=== PATIENT | female | born 1955 | race Caucasian/White ===

== ENCOUNTER → 2018-06-24 | Outpatient (CLI) | payer MEDICARE, BC ==
[~2018-06-24] MED LIST: ALBU2.5V NEB; ALBU8.5H8 INH; EPIN0.3P3 SC; ESOM40CA PO; FEXO180T72 PO; FLOVENT INH; FLUT16SP NAS; GUAI1TBM11 PO; HYDROXINE PO; IFLORA PO; PSEU30TA8 PO; [UNRECOGNIZED DRUG - OTHER] PO
== END | disposition home or self-care (01) ==
LOC: WOUND 07:54
PROVIDERS: ATTEND Nurse Practitioner Family
DX: Z43.3 Encounter for attention to colostomy (principal); M19.90 Unspecified osteoarthritis, unspecified site; J45.909 Unspecified asthma, uncomplicated; K21.9 Gastro-esophageal reflux disease without esophagitis; Z85.048 Personal history of other malignant neoplasm of rectum, rectosigmoid junction, and anus; Z87.891 Personal history of nicotine dependence
CPT/HCPCS: G0463; WOU0463

== ENCOUNTER 2018-06-25 05:57 | Inpatient (IN) | payer MEDICARE, BC ==
[2018-06-24 10:53] LABS: ALANINE AMINOTRANSFERASE 25 U/L (12-78); ALBUMIN 3.6 g/dL (3.4-5.0); ANION GAP 6 mmol/L (5-15); CALCIUM 8.8 mg/dL (8.5-10.1); CHLORIDE 107 mmol/L (98-107); CREATININE 0.93 mg/dL (0.55-1.02)
[2018-06-24 10:57] LABS: ALKALINE PHOSPHATASE 127 U/L (45-117); BILIRUBIN,TOTAL 1.1 mg/dL (0.2-1.0); TOTAL PROTEIN 7.3 g/dL (6.4-8.2)
[2018-06-24 11:00] LABS: BASOPHILS # (AUTO) 0.01 x10^3/uL (0-0.1); BASOPHILS % (AUTO) 0 % (0-1); EOSINOPHILS % (AUTO) 0 % (1-7); LYMPHOCYTES # (AUTO) 1.15 x10^3/uL (1-3.4); LYMPHOCYTES % (AUTO) 24 % (22-44); MD NO; MEAN CORPUSCULAR HEMOGLOBIN 31.9 pg (27.0-34.8); MEAN CORPUSCULAR HGB CONC 34.4 g/dL (32.4-35.8); MEAN CORPUSCULAR VOLUME 92.6 fL (80-100); MEAN PLATELET VOLUME 7.8 fL (7.4-10.4); MONOCYTES # (AUTO) 0.64 x10^3/uL (0.2-0.8); MONOCYTES % (AUTO) 14 % (2-9); NEUTROPHILS # (AUTO) 2.92 x10^3/uL (1.8-6.8); NEUTROPHILS % (AUTO) 62 % (42-75); PLATELET COUNT 234 x10^3/uL (130-400); RED BLOOD COUNT 4.58 x10^6/uL (3.82-5.3); RED CELL DISTRIBUTION WIDTH 12.6 % (9.6-15.2)
[~2018-06-25] VITALS: Ht 157.5 cm; Wt 79.6 kg
[2018-06-25] MEDS ORDERED: LACTATED RINGERS 1,000 ML IV SCH (06:41)
[2018-06-25] MEDS ORDERED: LIDOCAINE-MPF 1%, 2ML ONE (06:43)
[2018-06-25] MEDS ORDERED: LIDOCAINE-MPF 1%, 2ML INFIL ONE (07:00)
[2018-06-25] MEDS ORDERED: FENTANYL PF 250 MCG/5ML ONE ×2 (07:09→09:08)
[2018-06-25] MEDS ORDERED: MIDAZOLAM 1 MG/ML, 5ML ONE (07:09)
[2018-06-25] MEDS ORDERED: LIDOCAINE GEL 2%, 5ML ONE (07:09)
[2018-06-25] MEDS ORDERED: BUPIVACAINE/PF 0.25% ONE ×2 (07:13)
[2018-06-25] MEDS ORDERED: BUPIVACAINE/PF 0.5% ONE (07:13)
[2018-06-25] MEDS ORDERED: INDOCYANINE GREEN 25 MG VIAL ONE (07:13)
[2018-06-25] MEDS ORDERED: PHENYLEPHRINE 10 MG/ML ONE (07:17)
[2018-06-25] MEDS ORDERED: methylPREDNISolone SOD SUCC 125 MG/2 ML ONE (07:20)
[2018-06-25] MEDS ORDERED: HEPARIN 1,000 UNITS/ML, 10ML ONE (07:22)
[2018-06-25] MEDS ORDERED: ROCURONIUM 10 MG/ML,10ML ONE (07:34)
[2018-06-25] MEDS ORDERED: ONDANSETRON 2MG/ML, 2ML ONE ×3 (07:34→10:58)
[2018-06-25] MEDS ORDERED: CEFAZOLIN 1,000 MG ONE (07:34)
[2018-06-25] MEDS ORDERED: DEXAMETHASONE 4 MG/ML, 1ML ONE (07:34)
[2018-06-25] MEDS ORDERED: NEOSTIGMINE 1 MG/ML, 10ML ONE ×2 (07:34→10:59)
[2018-06-25] MEDS ORDERED: GLYCOPYRROLATE 0.2MG/1ML, 5ML ONE (07:34)
[2018-06-25] MEDS ORDERED: EPHEDRINE 50 MG/ML, 1ML ONE (08:08)
[2018-06-25] MEDS ORDERED: METRONIDAZOLE PMX 500MG/100ML 100 ML ONE (08:24)
[2018-06-25] MEDS ORDERED: PROMETHAZINE 25 MG/ML, 1ML IV PRN (09:00)
[2018-06-25] MEDS ORDERED: MEPERIDINE/PF 25MG/0.5ML IVPush PRN (09:00)
[2018-06-25] MEDS ORDERED: LABETALOL 5MG/ML, 20ML IV PRN (09:00)
[2018-06-25] MEDS ORDERED: HYDROmorphone 1 MG/ML, 1ML IV PRN (09:00)
[2018-06-25] MEDS ORDERED: ONDANSETRON 2MG/ML, 2ML IV PRN (09:00)
[2018-06-25] MEDS ORDERED: ALBUTEROL SULFATE 2.5 MG/3 ML NPPB PRN ×2 (09:00→16:00)
[2018-06-25] MEDS ORDERED: ONDANSETRON ODT 8 MG PO PRN (09:00)
[2018-06-25] MEDS ORDERED: OXYcodone 5 MG/5 ML ORAL.SOL UDC PO PRN (09:00)
[2018-06-25] MEDS ORDERED: PROMETHAZINE 12.5 MG SUPP PR PRN (09:00)
[2018-06-25] MEDS ORDERED: hydrALAzine 20 MG/ML, 1ML IV PRN (09:00)
[2018-06-25] MEDS ORDERED: ACETAMINOPHEN 325 MG TABLET PO PRN (09:00)
[2018-06-25] MEDS ORDERED: MIDAZOLAM 1 MG/ML, 2ML IV PRN (09:00)
[2018-06-25] MEDS ORDERED: GLYCOPYRROLATE 0.4 MG/2 ML, 2ML ONE (10:59)
[2018-06-25] MEDS ORDERED: ACETAMINOPHEN 650 MG/20.3 ML UDC ONE (12:09)
[2018-06-25] MEDS ORDERED: FENTANYL PF 100 MCG/2ML ONE (12:09)
[2018-06-25] MEDS ORDERED: OXYcodone 5 MG/5 ML ORAL.SOL UDC ONE (12:09)
[2018-06-25] MEDS: FENTANYL PF 100 MCG/2ML IV PRN ×2 (12:29→12:54)
[2018-06-25] MEDS ORDERED: ALBUTEROL SULFATE 2.5 MG/3 ML HHN PRN (13:30)
[2018-06-25] MEDS ORDERED: LORazepam 1MG TABLET PO PRN (14:00)
[2018-06-25] MEDS ORDERED: DIPHENHYDRAMINE 25 MG CAPSULE PO PRN (14:00)
[2018-06-25] MEDS ORDERED: LORazepam 2 MG/ML, 1ML IVPush PRN (14:00)
[2018-06-25] MEDS ORDERED: HALOPERIDOL 5 MG/ML IVPush PRN (14:00)
[2018-06-25] MEDS ORDERED: DEXAMETHASONE 4 MG/ML, 1ML IVPush PRN (14:00)
[2018-06-25] MEDS: D5%-0.45NACL+KCL 20MEQ 1,000 ML IV SCH (14:34)
[2018-06-25] MEDS: ACETAMINOPHEN 500 MG TABLET PO SCH ×2 (14:43→20:44)
[2018-06-25] MEDS: OXYcodone IR 5MG TABLET PO PRN ×3 (14:43→22:46)
[2018-06-25 15:00] VITALS: BP 122/60
[2018-06-25] MEDS ORDERED: HYDROmorphone 2 MG/ML, 1ML ONE (16:15)
[2018-06-25] MEDS: IBUPROFEN 800 MG TABLET PO SCH ×2 (16:23→20:44)
[2018-06-25] MEDS: HYDROmorphone 1 MG/ML, 1ML IVPush PRN (16:23)
[2018-06-25 19:00] VITALS: BP 113/75
[2018-06-25] MEDS: ALBUTEROL SULFATE 2.5 MG/3 ML NPPB SCH ×2 (20:07→20:08)
[2018-06-25] MEDS: GUAIFENESIN ER 600 MG TABLET PO SCH (20:44)
[2018-06-25] MEDS: CALCIUM CARBONATE 500 MG TAB.CHEW PO PRN (22:45)
[2018-06-26 01:45] VITALS: BP 116/69
[2018-06-26] MEDS: ACETAMINOPHEN 500 MG TABLET PO SCH ×4 (02:35→20:19)
[2018-06-26] MEDS: CALCIUM CARBONATE 500 MG TAB.CHEW PO PRN (02:35)
[2018-06-26 05:09] LABS: BASOPHILS # (AUTO) 0.02 x10^3/uL (0-0.1); BASOPHILS % (AUTO) 0 % (0-1); EOSINOPHILS % (AUTO) 0 % (1-7); LYMPHOCYTES # (AUTO) 0.95 x10^3/uL (1-3.4); LYMPHOCYTES % (AUTO) 10 % (22-44); MD NO; MEAN CORPUSCULAR HEMOGLOBIN 31.7 pg (27.0-34.8); MEAN CORPUSCULAR VOLUME 93.2 fL (80-100); MEAN PLATELET VOLUME 7.8 fL (7.4-10.4); MONOCYTES # (AUTO) 1.07 x10^3/uL (0.2-0.8); MONOCYTES % (AUTO) 11 % (2-9); NEUTROPHILS # (AUTO) 7.44 x10^3/uL (1.8-6.8); NEUTROPHILS % (AUTO) 79 % (42-75); PLATELET COUNT 217 x10^3/uL (130-400); RED BLOOD COUNT 3.82 x10^6/uL (3.82-5.3); RED CELL DISTRIBUTION WIDTH 12.8 % (9.6-15.2)
[2018-06-26] MEDS: D5%-0.45NACL+KCL 20MEQ 1,000 ML IV SCH ×2 (05:11→18:36)
[2018-06-26 05:21] LABS: ANION GAP 4 mmol/L (5-15); CALCIUM 8.3 mg/dL (8.5-10.1); CHLORIDE 109 mmol/L (98-107); CREATININE 0.76 mg/dL (0.55-1.02)
[2018-06-26 05:26] VITALS: BP 108/69
[2018-06-26 07:43] VITALS: BP 122/70
[2018-06-26] MEDS: PANTOPROZOLE 40MG TABLET PO SCH (07:55)
[2018-06-26] MEDS: ALBUTEROL SULFATE 2.5 MG/3 ML NPPB SCH ×3 (09:00→19:42)
[2018-06-26] MEDS: GUAIFENESIN ER 600 MG TABLET PO SCH ×2 (09:07→20:19)
[2018-06-26] MEDS: LORATADINE 10 MG TABLET PO SCH (09:07)
[2018-06-26] MEDS: ENOXAPARIN 40 MG/0.4 ML SQ SCH (09:52)
[2018-06-26] MEDS: IBUPROFEN 800 MG TABLET PO SCH ×3 (09:52→20:19)
[2018-06-26 12:33] VITALS: BP 114/71
[2018-06-26] MEDS: FLUTICASONE NASAL SPRAY 16GM NAS SCH (13:04)
[2018-06-26] MEDS: OXYcodone IR 5MG TABLET PO PRN (17:54)
[2018-06-26 18:43] VITALS: BP 135/75
[2018-06-27 01:51] VITALS: BP 126/62
[2018-06-27] MEDS: ACETAMINOPHEN 500 MG TABLET PO SCH ×5 (02:22→20:50)
[2018-06-27 05:31] LABS: BASOPHILS # (AUTO) 0.01 x10^3/uL (0-0.1); BASOPHILS % (AUTO) 0 % (0-1); EOSINOPHILS % (AUTO) 0 % (1-7); LYMPHOCYTES % (AUTO) 22 % (22-44); MD NO; MEAN CORPUSCULAR HEMOGLOBIN 30.9 pg (27.0-34.8); MEAN CORPUSCULAR HGB CONC 33.4 g/dL (32.4-35.8); MEAN CORPUSCULAR VOLUME 92.5 fL (80-100); MEAN PLATELET VOLUME 7.8 fL (7.4-10.4); MONOCYTES # (AUTO) 0.62 x10^3/uL (0.2-0.8); MONOCYTES % (AUTO) 11 % (2-9); NEUTROPHILS # (AUTO) 3.77 x10^3/uL (1.8-6.8); NEUTROPHILS % (AUTO) 67 % (42-75); PLATELET COUNT 195 x10^3/uL (130-400); RED BLOOD COUNT 3.85 x10^6/uL (3.82-5.3); RED CELL DISTRIBUTION WIDTH 12.5 % (9.6-15.2)
[2018-06-27 05:40] LABS: ANION GAP 6 mmol/L (5-15); CALCIUM 8.3 mg/dL (8.5-10.1); CHLORIDE 109 mmol/L (98-107)
[2018-06-27] MEDS: OXYcodone IR 5MG TABLET PO PRN ×2 (05:52→09:24)
[2018-06-27] MEDS: PANTOPROZOLE 40MG TABLET PO SCH (07:28)
[2018-06-27 08:50] VITALS: BP 145/74
[2018-06-27] MEDS: D5%-0.45NACL+KCL 20MEQ 1,000 ML IV SCH ×2 (08:54→20:54)
[2018-06-27] MEDS: ALBUTEROL SULFATE 2.5 MG/3 ML NPPB SCH (09:00)
[2018-06-27] MEDS: ENOXAPARIN 40 MG/0.4 ML SQ SCH (09:23)
[2018-06-27] MEDS: IBUPROFEN 800 MG TABLET PO SCH ×3 (09:24→20:46)
[2018-06-27] MEDS: GUAIFENESIN ER 600 MG TABLET PO SCH ×2 (09:24→20:50)
[2018-06-27] MEDS: LORATADINE 10 MG TABLET PO SCH (09:24)
[2018-06-27] MEDS: ONDANSETRON 2MG/ML, 2ML IV PRN ×2 (11:18→20:50)
[2018-06-27 14:30] VITALS: BP 154/92
[2018-06-27] MEDS: FLUTICASONE NASAL SPRAY 16GM NAS SCH (15:00)
[2018-06-27] MEDS: CALCIUM CARBONATE 500 MG TAB.CHEW PO PRN (16:54)
[2018-06-27] MEDS: DIPHENHYDRAMINE 50 MG/ML, 1ML IVPush PRN ×2 (17:10→23:33)
[2018-06-27 19:06] VITALS: BP 151/84
[2018-06-28 00:45] VITALS: BP 151/75
[2018-06-28] MEDS: SCOPOLAMINE PATCH, 1.5MG PATCH.TD72 TD PRN (03:31)
[2018-06-28 05:25] LABS: ANION GAP 10 mmol/L (5-15); CALCIUM 9.5 mg/dL (8.5-10.1); CHLORIDE 100 mmol/L (98-107); CREATININE 0.85 mg/dL (0.55-1.02)
[2018-06-28 05:26] LABS: BASOPHILS # (AUTO) 0.01 x10^3/uL (0-0.1); BASOPHILS % (AUTO) 0 % (0-1); EOSINOPHILS % (AUTO) 0 % (1-7); LYMPHOCYTES # (AUTO) 0.89 x10^3/uL (1-3.4); LYMPHOCYTES % (AUTO) 10 % (22-44); MD NO; MEAN CORPUSCULAR HEMOGLOBIN 31.5 pg (27.0-34.8); MEAN CORPUSCULAR HGB CONC 33.7 g/dL (32.4-35.8); MEAN CORPUSCULAR VOLUME 93.4 fL (80-100); MEAN PLATELET VOLUME 8.1 fL (7.4-10.4); MONOCYTES # (AUTO) 0.48 x10^3/uL (0.2-0.8); MONOCYTES % (AUTO) 5 % (2-9); NEUTROPHILS # (AUTO) 8.03 x10^3/uL (1.8-6.8); NEUTROPHILS % (AUTO) 85 % (42-75); PLATELET COUNT 316 x10^3/uL (130-400); RED BLOOD COUNT 5.08 x10^6/uL (3.82-5.3); RED CELL DISTRIBUTION WIDTH 12.6 % (9.6-15.2)
[2018-06-28] MEDS: PANTOPROZOLE 40MG TABLET PO SCH ×2 (07:53→19:39)
[2018-06-28] MEDS: ACETAMINOPHEN 500 MG TABLET PO SCH ×3 (07:53→19:39)
[2018-06-28 08:21] VITALS: BP 160/85
[2018-06-28] MEDS: IBUPROFEN 800 MG TABLET PO SCH ×3 (09:00→19:39)
[2018-06-28] MEDS: FLUTICASONE NASAL SPRAY 16GM NAS SCH (09:00)
[2018-06-28] MEDS: GUAIFENESIN ER 600 MG TABLET PO SCH ×2 (09:51→19:39)
[2018-06-28] MEDS: ENOXAPARIN 40 MG/0.4 ML SQ SCH (09:51)
[2018-06-28] MEDS: LORATADINE 10 MG TABLET PO SCH (09:51)
[2018-06-28] MEDS ORDERED: CALCIUM CARBONATE 500 MG TAB.CHEW PO PRN (10:00)
[2018-06-28] MEDS: ONDANSETRON 2MG/ML, 2ML IV PRN (11:44)
[2018-06-28 14:30] VITALS: BP 146/87
[2018-06-28 19:42] VITALS: BP 151/84
[2018-06-28] MEDS: D5%-0.45NACL+KCL 20MEQ 1,000 ML IV SCH (19:43)
[2018-06-29] MEDS: ACETAMINOPHEN 500 MG TABLET PO SCH ×4 (01:06→19:23)
[2018-06-29 01:52] VITALS: BP 153/83
[2018-06-29 05:15] LABS: BASOPHILS # (AUTO) 0.02 x10^3/uL (0-0.1); BASOPHILS % (AUTO) 0 % (0-1); EOSINOPHILS % (AUTO) 0 % (1-7); LYMPHOCYTES # (AUTO) 1.43 x10^3/uL (1-3.4); LYMPHOCYTES % (AUTO) 18 % (22-44); MD NO; MEAN CORPUSCULAR HEMOGLOBIN 31.6 pg (27.0-34.8); MEAN CORPUSCULAR HGB CONC 34.3 g/dL (32.4-35.8); MEAN CORPUSCULAR VOLUME 91.9 fL (80-100); MEAN PLATELET VOLUME 7.9 fL (7.4-10.4); MONOCYTES # (AUTO) 0.99 x10^3/uL (0.2-0.8); MONOCYTES % (AUTO) 12 % (2-9); NEUTROPHILS # (AUTO) 5.71 x10^3/uL (1.8-6.8); NEUTROPHILS % (AUTO) 70 % (42-75); PLATELET COUNT 315 x10^3/uL (130-400); RED BLOOD COUNT 4.67 x10^6/uL (3.82-5.3); RED CELL DISTRIBUTION WIDTH 12.8 % (9.6-15.2)
[2018-06-29 05:25] LABS: CHLORIDE 99 mmol/L (98-107)
[2018-06-29 05:57] LABS: ANION GAP 7 mmol/L (5-15); CALCIUM 8.9 mg/dL (8.5-10.1); CREATININE 0.91 mg/dL (0.55-1.02)
[2018-06-29] MEDS: D5%-0.45NACL+KCL 20MEQ 1,000 ML IV SCH ×2 (06:19→16:16)
[2018-06-29 07:30] VITALS: BP 146/70
[2018-06-29] MEDS: ENOXAPARIN 40 MG/0.4 ML SQ SCH (08:51)
[2018-06-29] MEDS: FLUTICASONE NASAL SPRAY 16GM NAS SCH (08:52)
[2018-06-29] MEDS: IBUPROFEN 800 MG TABLET PO SCH ×3 (08:52→19:23)
[2018-06-29] MEDS: PANTOPROZOLE 40MG TABLET PO SCH ×2 (08:52→20:11)
[2018-06-29] MEDS: GUAIFENESIN ER 600 MG TABLET PO SCH ×2 (08:53→20:10)
[2018-06-29] MEDS: LORATADINE 10 MG TABLET PO SCH (08:53)
[2018-06-29 12:19] VITALS: BP 152/85
[2018-06-29 19:13] VITALS: BP 149/76
[2018-06-30] MEDS: D5%-0.45NACL+KCL 20MEQ 1,000 ML IV SCH ×3 (01:42→21:29)
[2018-06-30] MEDS: ACETAMINOPHEN 500 MG TABLET PO SCH ×2 (01:43→08:45)
[2018-06-30 01:44] VITALS: BP 160/92
[2018-06-30 01:49] VITALS: BP 148/87
[2018-06-30 07:15] VITALS: BP 156/83
[2018-06-30] MEDS: IBUPROFEN 800 MG TABLET PO SCH (08:46)
[2018-06-30] MEDS: PANTOPROZOLE 40MG TABLET PO SCH (08:47)
[2018-06-30] MEDS: LORATADINE 10 MG TABLET PO SCH (08:47)
[2018-06-30] MEDS: ENOXAPARIN 40 MG/0.4 ML SQ SCH (08:47)
[2018-06-30] MEDS: FLUTICASONE NASAL SPRAY 16GM NAS SCH (08:48)
[2018-06-30] MEDS: GUAIFENESIN ER 600 MG TABLET PO SCH (08:48)
[2018-06-30] MEDS: NEXIUM HOMEMEDPO SCH ×2 (08:50→21:00)
[2018-06-30] MEDS: FEXOFENADINE HOMEMEDPO SCH (08:50)
[2018-06-30 12:18] VITALS: BP 160/85
[2018-06-30 20:24] VITALS: BP_SYST 85
[2018-06-30 21:13] VITALS: BP 155/85
[2018-07-01 02:12] VITALS: BP 156/81
[2018-07-01 06:54] VITALS: BP 147/80
[2018-07-01] MEDS: METOCLOPRAMIDE 5 MG/ML, 2ML IVPush SCH ×3 (07:27→19:26)
[2018-07-01] MEDS: D5%-0.45NACL+KCL 20MEQ 1,000 ML IV SCH ×2 (07:45→17:25)
[2018-07-01] MEDS: FLUTICASONE NASAL SPRAY 16GM NAS SCH (09:00)
[2018-07-01] MEDS: NEXIUM HOMEMEDPO SCH ×2 (09:00→20:43)
[2018-07-01] MEDS: FEXOFENADINE HOMEMEDPO SCH (09:00)
[2018-07-01] MEDS: ENOXAPARIN 40 MG/0.4 ML SQ SCH (09:23)
[2018-07-01] MEDS: SCOPOLAMINE PATCH, 1.5MG PATCH.TD72 TD PRN (11:50)
[2018-07-01 12:28] VITALS: BP 166/80
[2018-07-01 19:47] VITALS: BP 137/75
[2018-07-02] MEDS: METOCLOPRAMIDE 5 MG/ML, 2ML IVPush SCH ×4 (00:58→21:29)
[2018-07-02 01:05] VITALS: BP 148/82
[2018-07-02] MEDS: D5%-0.45NACL+KCL 20MEQ 1,000 ML IV SCH ×2 (03:53→14:00)
[2018-07-02 06:51] VITALS: BP 149/80
[2018-07-02 07:23] LABS: BASOPHILS # (AUTO) 0.02 x10^3/uL (0-0.1); BASOPHILS % (AUTO) 0 % (0-1); EOSINOPHILS % (AUTO) 0 % (1-7); LYMPHOCYTES # (AUTO) 1.05 x10^3/uL (1-3.4); LYMPHOCYTES % (AUTO) 13 % (22-44); MD NO; MEAN CORPUSCULAR HEMOGLOBIN 31.2 pg (27.0-34.8); MEAN CORPUSCULAR HGB CONC 34.4 g/dL (32.4-35.8); MEAN CORPUSCULAR VOLUME 90.7 fL (80-100); MEAN PLATELET VOLUME 7.5 fL (7.4-10.4); MONOCYTES # (AUTO) 0.84 x10^3/uL (0.2-0.8); MONOCYTES % (AUTO) 11 % (2-9); NEUTROPHILS % (AUTO) 76 % (42-75); PLATELET COUNT 278 x10^3/uL (130-400); RED BLOOD COUNT 4.52 x10^6/uL (3.82-5.3); RED CELL DISTRIBUTION WIDTH 12.4 % (9.6-15.2)
[2018-07-02] MEDS: NEXIUM HOMEMEDPO SCH ×2 (07:48→20:49)
[2018-07-02] MEDS: FEXOFENADINE HOMEMEDPO SCH (07:48)
[2018-07-02] MEDS: FLUTICASONE NASAL SPRAY 16GM NAS SCH (07:49)
[2018-07-02 08:02] LABS: ANION GAP 8 mmol/L (5-15); CALCIUM 8.8 mg/dL (8.5-10.1); CHLORIDE 101 mmol/L (98-107)
[2018-07-02 08:03] LABS: CREATININE 0.83 mg/dL (0.55-1.02)
[2018-07-02] MEDS: ENOXAPARIN 40 MG/0.4 ML SQ SCH (10:13)
[2018-07-02 12:29] VITALS: BP 156/83
[2018-07-02] MEDS ORDERED: OMNIPAQUE 350 MG/ML, 150 ML BOTTLE ONE (17:45)
[2018-07-02 20:26] VITALS: BP 125/79
[2018-07-03 01:45] VITALS: BP 139/81
[2018-07-03] MEDS: D5%-0.45NACL+KCL 20MEQ 1,000 ML IV SCH ×3 (02:07→21:58)
[2018-07-03] MEDS ORDERED: OXYC-302 PO (02:12)
[2018-07-03] MEDS ORDERED: ENOX40SY4 SQ (02:13)
[2018-07-03] MEDS: METOCLOPRAMIDE 5 MG/ML, 2ML IVPush SCH ×4 (03:25→21:11)
[2018-07-03 08:20] VITALS: BP 130/80
[2018-07-03] MEDS: FEXOFENADINE HOMEMEDPO SCH (09:00)
[2018-07-03] MEDS: NEXIUM HOMEMEDPO SCH ×2 (09:00→21:00)
[2018-07-03] MEDS: FLUTICASONE NASAL SPRAY 16GM NAS SCH (09:00)
[2018-07-03] MEDS: ENOXAPARIN 40 MG/0.4 ML SQ SCH (09:44)
[2018-07-03 13:55] VITALS: BP 119/83
[2018-07-03 20:00] VITALS: BP 120/81
[2018-07-04 02:00] VITALS: BP 117/71
[2018-07-04] MEDS: METOCLOPRAMIDE 5 MG/ML, 2ML IVPush SCH ×4 (03:11→21:23)
[2018-07-04 03:23] LABS: BASOPHILS # (AUTO) 0.03 x10^3/uL (0-0.1); BASOPHILS % (AUTO) 0 % (0-1); EOSINOPHILS % (AUTO) 0 % (1-7); LYMPHOCYTES # (AUTO) 1.02 x10^3/uL (1-3.4); LYMPHOCYTES % (AUTO) 16 % (22-44); MD NO; MEAN CORPUSCULAR HEMOGLOBIN 31.5 pg (27.0-34.8); MEAN CORPUSCULAR HGB CONC 34.3 g/dL (32.4-35.8); MEAN CORPUSCULAR VOLUME 91.9 fL (80-100); MEAN PLATELET VOLUME 7.8 fL (7.4-10.4); MONOCYTES # (AUTO) 0.95 x10^3/uL (0.2-0.8); MONOCYTES % (AUTO) 15 % (2-9); NEUTROPHILS # (AUTO) 4.37 x10^3/uL (1.8-6.8); NEUTROPHILS % (AUTO) 69 % (42-75); PLATELET COUNT 297 x10^3/uL (130-400); RED BLOOD COUNT 4.69 x10^6/uL (3.82-5.3); RED CELL DISTRIBUTION WIDTH 12.4 % (9.6-15.2)
[2018-07-04 03:24] LABS: ANION GAP 6 mmol/L (5-15); CALCIUM 8.7 mg/dL (8.5-10.1); CHLORIDE 102 mmol/L (98-107); CREATININE 1.04 mg/dL (0.55-1.02)
[2018-07-04 07:29] VITALS: BP 127/84
[2018-07-04] MEDS: D5%-0.45NACL+KCL 20MEQ 1,000 ML IV SCH ×2 (08:32→18:06)
[2018-07-04] MEDS: ENOXAPARIN 40 MG/0.4 ML SQ SCH (08:33)
[2018-07-04] MEDS: FLUTICASONE NASAL SPRAY 16GM NAS SCH (08:33)
[2018-07-04] MEDS: NEXIUM HOMEMEDPO SCH ×2 (08:33→21:22)
[2018-07-04] MEDS: FEXOFENADINE HOMEMEDPO SCH (08:33)
[2018-07-04 13:23] VITALS: BP 165/78
[2018-07-04] MEDS ORDERED: BUPIVACAINE/PF 0.5% ONE (14:05)
[2018-07-04] MEDS ORDERED: FENTANYL PF 250 MCG/5ML ONE (14:25)
[2018-07-04] MEDS ORDERED: MIDAZOLAM 1 MG/ML, 2ML ONE (14:25)
[2018-07-04] MEDS ORDERED: NEOSTIGMINE 1 MG/ML, 10ML ONE (14:27)
[2018-07-04] MEDS ORDERED: GLYCOPYRROLATE 0.2MG/1ML, 5ML ONE (14:27)
[2018-07-04] MEDS ORDERED: ROCURONIUM 10MG/ML,5ML ONE (14:27)
[2018-07-04] MEDS ORDERED: DEXAMETHASONE 4 MG/ML, 1ML ONE (14:27)
[2018-07-04] MEDS ORDERED: CEFAZOLIN 1,000 MG ONE (14:27)
[2018-07-04] MEDS ORDERED: ONDANSETRON 2MG/ML, 2ML ONE (14:27)
[2018-07-04] MEDS ORDERED: PROPOFOL 10 MG/ML, 20ML ONE (14:27)
[2018-07-04] MEDS ORDERED: SUCCINYLCHOLINE 20 MG/ML, 10ML ONE (14:27)
[2018-07-04] MEDS ORDERED: NALOXONE 0.4 MG/ML, 1ML ONE (15:36)
[2018-07-04] MEDS ORDERED: PROMETHAZINE 25 MG/ML, 1ML IV PRN (16:00)
[2018-07-04] MEDS ORDERED: ONDANSETRON 2MG/ML, 2ML IV PRN (16:00)
[2018-07-04] MEDS ORDERED: ACETAMINOPHEN 325 MG TABLET PO PRN (16:00)
[2018-07-04] MEDS ORDERED: MORPHINE SULFATE 4 MG/ML, 1ML IVPush PRN (16:00)
[2018-07-04] MEDS ORDERED: OXYcodone 5 MG/5 ML ORAL.SOL UDC ONE ×2 (16:11→16:37)
[2018-07-04] MEDS ORDERED: FENTANYL PF 100 MCG/2ML ONE (16:11)
[2018-07-04] MEDS: FENTANYL PF 100 MCG/2ML IV PRN ×3 (16:14→16:39)
[2018-07-04] MEDS: OXYcodone 5 MG/5 ML ORAL.SOL UDC PO PRN ×2 (16:14→16:38)
[2018-07-04] MEDS ORDERED: HYDROmorphone 2 MG/ML, 1ML ONE ×2 (18:08→21:18)
[2018-07-04] MEDS: HYDROmorphone 1 MG/ML, 1ML IVPush PRN ×2 (18:11→21:23)
[2018-07-04 18:30] VITALS: BP 139/79
[2018-07-04] MEDS: OXYcodone IR 5MG TABLET PO PRN (21:50)
[2018-07-05 00:01] VITALS: BP 124/72
[2018-07-05] MEDS: OXYcodone IR 5MG TABLET PO PRN ×4 (00:40→19:46)
[2018-07-05 03:48] VITALS: BP 122/82
[2018-07-05] MEDS: METOCLOPRAMIDE 5 MG/ML, 2ML IVPush SCH ×4 (03:54→22:30)
[2018-07-05] MEDS: D5%-0.45NACL+KCL 20MEQ 1,000 ML IV SCH ×2 (03:54→13:27)
[2018-07-05 07:06] VITALS: BP 113/74
[2018-07-05] MEDS: FLUTICASONE NASAL SPRAY 16GM NAS SCH (08:20)
[2018-07-05] MEDS: FEXOFENADINE HOMEMEDPO SCH (08:20)
[2018-07-05] MEDS: NEXIUM HOMEMEDPO SCH ×2 (08:21→19:46)
[2018-07-05] MEDS: ENOXAPARIN 40 MG/0.4 ML SQ SCH (08:44)
[2018-07-05 15:03] VITALS: BP 116/79
[2018-07-05 19:17] VITALS: BP 105/70
[2018-07-06 00:20] VITALS: BP 100/68
[2018-07-06] MEDS: METOCLOPRAMIDE 5 MG/ML, 2ML IVPush SCH (04:26)
[2018-07-06] MEDS: OXYcodone IR 5MG TABLET PO PRN ×4 (04:33→21:04)
[2018-07-06 05:37] LABS: MEAN CORPUSCULAR HEMOGLOBIN 31.3 pg (27.0-34.8); MEAN CORPUSCULAR VOLUME 92.3 fL (80-100); MEAN PLATELET VOLUME 7.9 fL (7.4-10.4); PLATELET COUNT 301 x10^3/uL (130-400); RED BLOOD COUNT 5.09 x10^6/uL (3.82-5.3); RED CELL DISTRIBUTION WIDTH 12.7 % (9.6-15.2)
[2018-07-06 05:47] LABS: CHLORIDE 92 mmol/L (98-107)
[2018-07-06 05:55] LABS: ANION GAP 10 mmol/L (5-15); CALCIUM 9.5 mg/dL (8.5-10.1); CREATININE 1.46 mg/dL (0.55-1.02)
[2018-07-06 06:12] LABS: BASOPHILS % (AUTO) 0 % (0-1); EOSINOPHILS % (AUTO) 0 % (1-7); LYMPHOCYTES # (AUTO) 1.23 x10^3/uL (1-3.4); LYMPHOCYTES % (AUTO) 8 % (22-44); MD SCAN; MONOCYTES # (AUTO) 1.96 x10^3/uL (0.2-0.8); MONOCYTES % (AUTO) 12 % (2-9); NEUTROPHILS % (AUTO) 80 % (42-75)
[2018-07-06 07:05] VITALS: BP 122/73
[2018-07-06] MEDS: FEXOFENADINE HOMEMEDPO SCH (08:30)
[2018-07-06] MEDS: ENOXAPARIN 40 MG/0.4 ML SQ SCH (08:30)
[2018-07-06] MEDS: NEXIUM HOMEMEDPO SCH ×2 (08:30→21:04)
[2018-07-06] MEDS: FLUTICASONE NASAL SPRAY 16GM NAS SCH (08:31)
[2018-07-06] MEDS: D5%-0.45NACL+KCL 20MEQ 1,000 ML IV SCH ×3 (10:00→20:00)
[2018-07-06] MEDS ORDERED: LIDOCAINE GEL 2%, 5ML TP ONE (12:00)
[2018-07-06 14:07] VITALS: BP 115/76
[2018-07-06 19:49] VITALS: BP 108/65
[2018-07-07] VITALS (10 sets, daily range): BP systolic 81–111; BP diastolic 60–78
[2018-07-07 03:22] LABS: MEAN CORPUSCULAR HEMOGLOBIN 31.5 pg (27.0-34.8); MEAN CORPUSCULAR HGB CONC 34.4 g/dL (32.4-35.8); MEAN CORPUSCULAR VOLUME 91.7 fL (80-100); MEAN PLATELET VOLUME 7.8 fL (7.4-10.4); PLATELET COUNT 280 x10^3/uL (130-400); RED BLOOD COUNT 4.42 x10^6/uL (3.82-5.3); RED CELL DISTRIBUTION WIDTH 12.3 % (9.6-15.2)
[2018-07-07 03:28] LABS: ANION GAP 11 mmol/L (5-15); CALCIUM 8.9 mg/dL (8.5-10.1); CHLORIDE 87 mmol/L (98-107); CREATININE 1.29 mg/dL (0.55-1.02)
[2018-07-07] MEDS ORDERED: hydrOXyzine 50MG TABLET PO PRN (03:30)
[2018-07-07] MEDS ORDERED: FLOVENT 110 MCG IH PRN (03:30)
[2018-07-07] MEDS: OXYcodone IR 5MG TABLET PO PRN (03:47)
[2018-07-07 03:54] LABS: MD SCAN
[2018-07-07 03:55] LABS: BASOPHILS # (AUTO) 0.03 x10^3/uL (0-0.1); BASOPHILS % (AUTO) 0 % (0-1); EOSINOPHILS % (AUTO) 0 % (1-7); LYMPHOCYTES # (AUTO) 1.48 x10^3/uL (1-3.4); LYMPHOCYTES % (AUTO) 13 % (22-44); MONOCYTES # (AUTO) 1.67 x10^3/uL (0.2-0.8); MONOCYTES % (AUTO) 14 % (2-9); NEUTROPHILS # (AUTO) 8.52 x10^3/uL (1.8-6.8); NEUTROPHILS % (AUTO) 73 % (42-75)
[2018-07-07] MEDS: D5%-0.45NACL+KCL 20MEQ 1,000 ML IV SCH (06:00)
[2018-07-07] MEDS ORDERED: SODIUM CHLORIDE 0.9% 1,000 ML IV SCH (09:00)
[2018-07-07 09:43] LABS: TROPONIN I < 0.015 ng/mL (0.000-0.045)
[2018-07-07] MEDS ORDERED: DILTIAZEM 5 MG/ML, 5ML IVPush ONE (10:00)
[2018-07-07] MEDS: DILTIAZEM 5 MG/ML, 5ML IVPush ONE ×2 (11:00→11:22)
[2018-07-07] MEDS ORDERED: DIPHENOXYLATE/ATROPINE TABLET PO PRN (11:00)
[2018-07-07] MEDS ORDERED: VERAPAMIL 2.5 MG/ML, 4ML IVPush ONE (11:00)
[2018-07-07] MEDS ORDERED: VERAPAMIL 2.5 MG/ML, 4ML ONE (11:01)
[2018-07-07] MEDS ORDERED: MAGNESIUM SULFATE PMX 2GM/50ML 50 ML IV ONE (11:30)
[2018-07-07] MEDS ORDERED: DILTIAZEM 5 MG/ML, 10ML IVPush ONE (11:30)
[2018-07-07] MEDS ORDERED: POTASSIUM CHLORIDE 20 MEQ TAB.ER.PRT PO ONE (11:30)
[2018-07-07] MEDS: FEXOFENADINE HOMEMEDPO SCH (11:58)
[2018-07-07] MEDS: NEXIUM HOMEMEDPO SCH ×2 (11:59→20:08)
[2018-07-07] MEDS: ENOXAPARIN 40 MG/0.4 ML SQ SCH (12:00)
[2018-07-07] MEDS: FLUTICASONE NASAL SPRAY 16GM NAS SCH (12:01)
[2018-07-07 12:18] LABS: ANION GAP 13 mmol/L (5-15); CALCIUM 9.3 mg/dL (8.5-10.1); CHLORIDE 86 mmol/L (98-107)
[2018-07-07 12:19] LABS: CREATININE 1.36 mg/dL (0.55-1.02)
[2018-07-07] MEDS ORDERED: DILTIAZEM 125 MG in SODIUM CHLORIDE 0.9% 100 ML IV SCH (13:30)
[2018-07-07 14:16] LABS: TROPONIN I < 0.015 ng/mL (0.000-0.045)
[2018-07-07] MEDS ORDERED: HEPARIN wt. based STROKE protocol MC PRN (15:00)
[2018-07-07] MEDS ORDERED: HEPARIN 25,000 UNITS/500ML PMX 500 ML IV PRN (15:30)
[2018-07-07] MEDS ORDERED: FILTER 0.22 MICRON FOR AMIODARONE IV PRN (17:30)
[2018-07-07] MEDS ORDERED: AMIODARONE 150 MG in DEXTROSE 5% 100 ML IV ONE (17:30)
[2018-07-07] MEDS ORDERED: AMIODARONE 900 MG in DEXTROSE 5% 482 ML IV PRN (17:30)
[2018-07-07] MEDS ORDERED: SODIUM CHLORIDE 0.9%, 250ML IVBOLUS ONE (22:30)
[2018-07-07 22:42] LABS: TROPONIN I < 0.015 ng/mL (0.000-0.045)
[2018-07-08 00:43] VITALS: BP 119/72
[2018-07-08 06:47] VITALS: BP 116/69
[2018-07-08] MEDS ORDERED: DIPHENOXYLATE/ATROPINE TABLET PO PRN (07:00)
[2018-07-08 08:11] LABS: ANION GAP 8 mmol/L (5-15); CALCIUM 8.2 mg/dL (8.5-10.1); CHLORIDE 96 mmol/L (98-107); CREATININE 0.85 mg/dL (0.55-1.02)
[2018-07-08] MEDS: NEXIUM HOMEMEDPO SCH (09:00)
[2018-07-08] MEDS: FLUTICASONE NASAL SPRAY 16GM NAS SCH (09:22)
[2018-07-08] MEDS: FEXOFENADINE HOMEMEDPO SCH (09:23)
[2018-07-08] MEDS: OXYcodone IR 5MG TABLET PO PRN ×2 (09:56→13:36)
[2018-07-08] MEDS ORDERED: OMEPRAZOLE 20 MG CAPSULE.DR ONE (13:30)
[2018-07-08] MEDS ORDERED: DILTIAZEM 125 MG in SODIUM CHLORIDE 0.9% 100 ML IV SCH (13:30)
[2018-07-08] MEDS: OMEPRAZOLE 20 MG CAPSULE.DR PO SCH ×2 (13:36→19:32)
[2018-07-08 14:00] VITALS: BP 105/65
[2018-07-08 19:33] VITALS: BP 116/71
[2018-07-09 03:15] VITALS: BP 128/75
[2018-07-09 04:10] LABS: ANION GAP 8 mmol/L (5-15); BASOPHILS # (AUTO) 0.07 x10^3/uL (0-0.1); BASOPHILS % (AUTO) 1 % (0-1); CALCIUM 8.7 mg/dL (8.5-10.1); CHLORIDE 99 mmol/L (98-107); CREATININE 0.95 mg/dL (0.55-1.02); EOSINOPHILS % (AUTO) 0 % (1-7); LYMPHOCYTES # (AUTO) 0.97 x10^3/uL (1-3.4); LYMPHOCYTES % (AUTO) 16 % (22-44); MD NO; MEAN CORPUSCULAR HEMOGLOBIN 31.3 pg (27.0-34.8); MEAN CORPUSCULAR HGB CONC 34.4 g/dL (32.4-35.8); MEAN CORPUSCULAR VOLUME 90.9 fL (80-100); MEAN PLATELET VOLUME 7.6 fL (7.4-10.4); MONOCYTES # (AUTO) 0.88 x10^3/uL (0.2-0.8); MONOCYTES % (AUTO) 15 % (2-9); NEUTROPHILS # (AUTO) 4.11 x10^3/uL (1.8-6.8); NEUTROPHILS % (AUTO) 68 % (42-75); PLATELET COUNT 314 x10^3/uL (130-400); RED BLOOD COUNT 4.14 x10^6/uL (3.82-5.3); RED CELL DISTRIBUTION WIDTH 12.4 % (9.6-15.2)
[2018-07-09 07:30] VITALS: BP 125/73
[2018-07-09] MEDS: OMEPRAZOLE 20 MG CAPSULE.DR PO SCH (07:30)
[2018-07-09] MEDS ORDERED: OMEPRAZOLE 20 MG CAPSULE.DR PO SCH (07:30)
[2018-07-09] MEDS: FLUTICASONE NASAL SPRAY 16GM NAS SCH (08:41)
[2018-07-09] MEDS: FEXOFENADINE HOMEMEDPO SCH (08:43)
[2018-07-09] MEDS ORDERED: ENOXAPARIN 40 MG/0.4 ML SQ SCH (09:00)
[2018-07-09] MEDS ORDERED: OXYC-302 PO (12:12)
[2018-07-09] MEDS ORDERED: DIPH1TAB PO (12:15)
[2018-07-09 14:21] VITALS: BP 118/76
[2018-07-09] MEDS: OXYcodone IR 5MG TABLET PO PRN (14:25)
== END 2018-07-09 14:45 | disposition home health service (06) | DRG 330 ==
LOC: ORIP 05:57 → 4NOR 13:12 → 5SO 07-07 10:47 → DCLOUNGE 07-09 14:30
PROVIDERS: ADMIT Surgery; ATTEND Surgery
PROC: 0UB10ZX Excision of Left Ovary, Open Approach, Diagnostic (ICD-10-PCS; 2018-06-25)
PROC: 0D1B0Z4 Bypass Ileum to Cutaneous, Open Approach (ICD-10-PCS; 2018-06-25)
PROC: 0JH63WZ Insertion of Totally Implantable Vascular Access Device into Chest Subcutaneous Tissue and Fascia, Percutaneous Approach (ICD-10-PCS; 2018-06-25)
PROC: 02HV33Z Insertion of Infusion Device into Superior Vena Cava, Percutaneous Approach (ICD-10-PCS; 2018-06-25)
PROC: B5181ZA Fluoroscopy of Superior Vena Cava using Low Osmolar Contrast, Guidance (ICD-10-PCS; 2018-06-25)
PROC: 8E0W0CZ Robotic Assisted Procedure of Trunk Region, Open Approach (ICD-10-PCS; 2018-06-25)
PROC: 0DBN0ZZ Excision of Sigmoid Colon, Open Approach (ICD-10-PCS; principal; 2018-06-25 07:30)
PROC: 0DBP0ZZ Excision of Rectum, Open Approach (ICD-10-PCS; 2018-06-25 07:30)
PROC: 0DBB0ZZ Excision of Ileum, Open Approach (ICD-10-PCS; 2018-07-04)
DX: C19 Malignant neoplasm of rectosigmoid junction (principal); E87.1 Hypo-osmolality and hyponatremia; K91.30 Postprocedural intestinal obstruction, unspecified as to partial versus complete; E86.0 Dehydration; E87.6 Hypokalemia; Z82.49 Family history of ischemic heart disease and other diseases of the circulatory system; I48.91 Unspecified atrial fibrillation; J45.909 Unspecified asthma, uncomplicated; K21.9 Gastro-esophageal reflux disease without esophagitis; Z80.9 Family history of malignant neoplasm, unspecified; Y92.89 Other specified places as the place of occurrence of the external cause; I95.9 Hypotension, unspecified
CPT/HCPCS: 36415; 74018; 74250; 77001; 80048; 80053; 82378; 84484; 85025; 85520; 86850; 86900; 88305; 88309; 88331; 88341; 88342; 93005; 93306; 94640; C1729; G0378; J0690; J1100; J1170; J1644; J1650; J2250; J2310; J2405; J2704; J2710; J3010; J3490; J7613; Q9967; C1788; G0461; J0282; J0330; J1200; J2370; J2765; J2930; J3475; J3480; J7030; J7050; J7120